=== PATIENT | male | born 1970 | race Caucasian/White ===

== ENCOUNTER 2016-12-31 13:43 | Day surgery (SDC) | payer OTHER ==
[2016-12-31] MEDS ORDERED: ASPIRIN EC 325 MG TAB PO ONE (14:01)
[2016-12-31] MEDS ORDERED: DIAZEPAM 5 MG TAB PO ONE (14:01)
[2016-12-31] MEDS ORDERED: NS 1,000 ML IV ONE (14:01)
[2016-12-31] MEDS ORDERED: FAMOTIDINE 20 MG TAB PO ONE (14:01)
[2016-12-31] MEDS ORDERED: diphenhydrAMINE 25 MG CAP PO ONE (14:01)
--- NOTE | 2016-12-31 14:18 | CPEKG ---
Heart Rate: 64 RR Interval: 938 P-R Interval: 160 QRSD Interval: 94 QT Interval: 396 QTC Interval: 409 P [place]: 33 QRS [place]: 51 T Wave [place]: 19 EKG Severity - NORMAL ECG - EKG Impression: SINUS RHYTHM Electronically Signed By: Nav Sanford 31-Dec-2016 19:27:18
--- NOTE | 2016-12-31 16:52 | GHP ---
[f rep st] HISTORY AND PHYSICAL DATE OF ADMISSION: 12/31/2016 CHIEF COMPLAINT: Chest pain. HISTORY OF PRESENT ILLNESS: The patient is a 46-year-old male with a history of CAD by coronary artery calcium scoring, dyslipidemia, who was brought over for evaluation of symptoms suggestive of unstable angina. He reports getting yearly calcium scores for the past 6 years. With this, he has noted advancement of the Agatston score, currently up to 254.76. In 2004, he injured his left shoulder due to a fall. Since that fall, he will experience arm numbness by pushing on a certain spot on his shoulder. He has also had muscular tightness in his upper back, with right greater than left-sided pains. A couple of weeks back, he was on his bike on a 70-mile ride, and he noted a discomfort radiating into his left chest that seemed worse than his typical musculoskeletal discomfort. He backed off on the intensity of the ride, and was able to get home. This discomfort was dissimilar from his typical episodes of musculoskeletal discomfort, which will occur at rest, and will typically be relieved by muscle relaxants. He denies any dyspnea out of proportion to his activity. He denies any diaphoresis or nausea. FAMILY HISTORY: Significant for uncles with coronary disease. He has a sister who is in good health. His mother and father have no known coronary disease. ALLERGIES: No known drug allergies. HOME MEDICATIONS: Include aspirin and statin therapy. Medications have yet to be reconciled. PAST MEDICAL HISTORY: Colonic polyps, coronary artery calcium, and dyslipidemia. SOCIAL HISTORY: Patient is , and his Stephanie is present at bedside. He denies any tobacco abuse. He rarely drinks alcohol. REVIEW OF SYSTEMS: As per HPI. A complete 10-point review of systems was obtained, and is negative except for what is dictated. PHYSICAL EXAM: VITAL SIGNS: BP of 100/60. Heart rate of 64. GENERAL: He is a pleasant male in no apparent distress. HEENT: Eyes are without scleral icterus. Mucous membranes moist. HEART: Regular rate and rhythm, with a 1/6 systolic murmur best heard at the apex. LUNGS: Clear to auscultation. ABDOMEN : Nontender, nondistended, with normoactive bowel sounds, and no hepatosplenomegaly. : Without Reynaga present. SKIN: Warm and dry. NEUROLOGIC: No focal deficits detected. PSYCHIATRIC: Normal mood and affect for given situation. LABORATORY DATA: A 12-lead ECG personally interpreted demonstrates normal sinus rhythm. IMPRESSION AND PLAN: The patient is a 46-year-old male who was sent over from Dr. Shepherd's office for concerns of unstable angina. 1. Chest pain. He has known elevated coronary artery calcium scoring, and has an episode of exertional chest pain dissimilar from his typical musculoskeletal discomfort. We have reviewed options, and he is agreeable to undergo left heart catheterization for further evaluation. Risks, benefits and alternatives were thoroughly reviewed with him today. 2. Dyslipidemia. This is followed by Dr. Shepherd. His LDL appears well controlled at 40. /[id number]/MODL MTDD
== END 2016-12-31 16:03 | disposition home or self-care (01) ==
LOC: FCATH 13:43
PROVIDERS: ATTEND Internal Medicine Cardiovascular Disease
DX: R07.9 Chest pain, unspecified (principal); E78.5 Hyperlipidemia, unspecified; Z53.09 Procedure and treatment not carried out because of other contraindication

== ENCOUNTER 2017-01-01 11:24 | Day surgery (SDC) | payer OTHER ==
[2017-01-01] MEDS ORDERED: NS 1,000 ML IV ONE (11:42)
[2017-01-01] MEDS ORDERED: DIAZEPAM 5 MG TAB PO ONE (11:42)
[2017-01-01] MEDS ORDERED: FAMOTIDINE 20 MG TAB PO ONE (11:42)
[2017-01-01] MEDS ORDERED: ASPIRIN EC 325 MG TAB PO ONE (11:42)
[2017-01-01] MEDS ORDERED: diphenhydrAMINE 25 MG CAP PO ONE (11:42)
[2017-01-01] MEDS ORDERED: ASPIRIN 325 MG TAB ONE (11:52)
[2017-01-01 11:55] LABS: % IMMATURE GRANULYOCYTES 0.2 % (0.0-1.1); ABSOLUTE IMMATURE GRANULOCYTES 0.01 10^3/uL (0.00-0.10); ADD DIFF? NO; ADD MORPH? NO; ADD SCAN? NO; ATYPICAL LYMPHOCYTE FLAG 30 (0-99); FRAGMENT RBC FLAG 0 (0-99); HEMATOCRIT 49.4 % (40.0-51.0); HEMOGLOBIN 17.5 g/dL (13.7-17.5); LEFT SHIFT FLG 0 (0-99); LIPEMIA HEMOLYSIS FLAG 90 (0-99); MEAN CELL HEMOGLOBIN 32.8 pg (27.9-34.1); MEAN CELL HEMOGLOBIN CONCENTR. 35.4 g/dL (32.4-36.7); MEAN CELL VOLUME 92.5 fL (81.5-99.8); MEAN PLATELET VOLUME 9.7 fL (8.7-11.7); PLATELET CLUMPS FLAG 10 (0-99); PLATELET COUNT 177 10^3/uL (150-400); RED BLOOD CELL COUNT 5.34 10^6/uL (4.40-6.38); RED CELL DISTRIBUTION WIDTH 12.3 % (11.5-15.2)
[2017-01-01 12:09] LABS: INR 1.08 (0.83-1.16); PROTIME(PATIENT) 13.9 SEC (12.0-15.0)
[2017-01-01 12:20] LABS: ANION GAP 12 mEq/L (8-16); CALCIUM 9.4 mg/dL (8.5-10.4); CARBON DIOXIDE 26 mEq/l (22-31); CHLORIDE 102 mEq/L (97-110); CHOLESTEROL 127 mg/dL (140-200); CHOLESTEROL/HDL RATIO 1.67 RATIO (1.00-4.97); CREATININE 0.8 mg/dL (0.7-1.3); GLOMERULAR FILTRATION RATE > 60; GLUCOSE 83 mg/dL (70-100); HIGH DENSITY LIPOPROTEIN 76 mg/dL (40-65); LDL/HDL RATIO 0.49 RATIO (1.00-3.64); LOW DENSITY LIPOPROTEIN 37 mg/dL (70-100); MAGNESIUM 1.9 mg/dL (1.6-2.3); NON-HIGH DENSITY LIPOPROTEIN 51 mg/dL (90-129); POTASSIUM 3.7 mEq/L (3.5-5.2); SODIUM 140 mEq/L (134-144); TRIGLYCERIDE 72 mg/dL (40-150); VERY LOW DENSITY LIPOPROTEINS 14 mg/dL (8-25)
[2017-01-01] MEDS ORDERED: LIDOCAINE 1% 30 ML SDV ONE (12:55)
[2017-01-01] MEDS ORDERED: fentaNYL 100 MCG/2 ML INJ ONE ×2 (12:55→14:50)
[2017-01-01] MEDS ORDERED: IOPAMIDOL (ISOVUE-370) 150 ML BTL IV ONE (12:56)
[2017-01-01] MEDS ORDERED: VERAPAMIL 5 MG/2 ML VIAL ONE (12:56)
[2017-01-01] MEDS ORDERED: HEPARIN 10,000 UNIT/10 ML MDV ONE (12:56)
[2017-01-01] MEDS ORDERED: MIDAZOLAM 2 MG/2 ML VIAL ONE ×2 (12:56→13:54)
[2017-01-01] MEDS ORDERED: NITROGLYCERIN 0.4 MG BTL SL ONE (16:40)
[2017-01-01] MEDS ORDERED: NITROGLYCERIN 0.4 MG BTL SL PRN (16:44)
[2017-01-01] MEDS ORDERED: ONDANSETRON 4 MG/2 ML VIAL IVP PRN (16:44)
[2017-01-01] MEDS ORDERED: OXYCODONE/APAP 5/325 TAB PO PRN (16:44)
[2017-01-01] MEDS ORDERED: HYDROCODONE/APAP 5/325 TAB PO PRN (16:44)
[2017-01-01] MEDS ORDERED: ATROPINE SULFATE 1 MG/10 ML SYR IVP PRN (16:44)
--- NOTE | 2017-01-01 20:06 | CPIP ---
[f rep st] INVASIVE CARDIAC PROCEDURE DATE OF PROCEDURE: 01/01/2017 PROCEDURE: 1. Left heart catheterization. 2. Coronary angiography, left. INDICATIONS: Increasing chest discomfort, including new onset exertional chest discomfort, in a pat ient with known coronary disease. COMPLICATIONS: None apparent. DESCRIPTION OF PROCEDURE: N.p.o. status was confirmed, informed consent obtained, and timeout perfo rmed. The patient was brought to the catheterization laboratory and prepped and draped in a sterile fashion. Conscious sedation was achieved with Versed and fentanyl IV. 1% lidocaine was used for l ocal anesthesia of the right wrist. Using modified Seldinger technique, a 5-Tamazight introducer sheat h was placed in the right radial artery. Charles right catheter was used for right coronary angiog radha. JL 3.5 catheter was used for left ventriculography. We were unable to cross the aortic valv e with the pigtail catheter, and therefore a ventriculogram was not obtained, but we were able to cr oss the valve with the right coronary catheter and therefore we do have LV pressures. FINDINGS: 1. The left main was normal and bifurcates into the LAD and left circumflex system. 2. The LAD reaches the apex. There is 1 large branching diagonal. There was 40% proximal LAD sten osis with MARLEN-3 flow throughout the vessel. 3. The circumflex artery has 1 large branching obtuse marginal vessel. There was no significant di sease in the circumflex or the obtuse marginal. 4. The right coronary artery was large and dominant. There was no significant coronary artery dise ase. HEMODYNAMICS: LV pressure is 105/5 with an end-diastolic pressure of 15. Aortic pressure is 104/76 . There is no aortic stenosis. CONCLUSIONS: 1. Non flow-limiting proximal left anterior descending artery disease in this right dominant system . 2. Normal left heart pressures. 3. The patient's right radial arteriotomy site was sealed with a TR band. He was taken to the [facility] in stable condition. Results discussed with the patient and his . He will be discharged home l atejordyn today. 4. Follow up with me in 1 week, and continue to follow up with Dr. Shepherd. /[id number]/MODL
== END 2017-01-01 19:22 | disposition home or self-care (01) ==
LOC: FCATH 11:24
PROVIDERS: ATTEND Internal Medicine Cardiovascular Disease
PROC: 4A023N7 Measurement of Cardiac Sampling and Pressure, Left Heart, Percutaneous Approach (ICD-10-PCS; principal; 2017-01-01)
PROC: B2111ZZ Fluoroscopy of Multiple Coronary Arteries using Low Osmolar Contrast (ICD-10-PCS; principal; 2017-01-01)
DX: R07.9 Chest pain, unspecified (principal); I25.10 Atherosclerotic heart disease of native coronary artery without angina pectoris
CPT/HCPCS: 93458; C1769; J1644; J2250; J3010; Q9967

== ENCOUNTER 2017-01-01 21:11 | Emergency (ER) | payer OTHER ==
[2017-01-01 21:16] VITALS: PULSE 65; TEMP 98.6
--- NOTE | 2017-01-01 21:45 | EDPHY ---
H & P Stated Complaint: BLEEDING FROM CATH SITE,STOPPED NOW Time Seen by Provider: 01/01/17 21:38 HPI/ROS: CHIEF COMPLAINT: Right wrist bleeding HISTORY OF PRESENT ILLNESS: The patient is a 46-year-old man who comes to the emergency department complaining of bleeding from his right wrist. He had a angio cath done earlier today and was released about 3 hours ago. He tried to change his dressing tonight and it began bleeding again. He was dressed with Coban at triage and bleeding has now stopped. He has no swelling or hematoma. Pulses are good. Normal hand motion. No tingling. REVIEW OF SYSTEMS: Constitutional: denies: chills, fever, recent illness, recent injury EENTM: denies: blurred vision, double vision, nose congestion Respiratory: denies: cough, shortness of breath Cardiac: denies: chest pain, irregular heart rate, lightheadedness, palpitations Gastrointestinal/Abdominal: denies: abdominal pain, diarrhea, nausea, vomiting, blood streaked stools Genitourinary: denies: dysuria, frequency, hematuria, pain Musculoskeletal: denies: joint pain, muscle pain Skin: See HPI Neurological: denies: headache, numbness, paresthesia, tingling, dizziness, weakness Hematologic/Lymphatic: denies: blood clots, easy bleeding, easy bruising Immunologic/allergic: denies: HIV/AIDS, transplant EXAM: GENERAL: Well-appearing, well-nourished and in no acute distress. HEAD: Atraumatic, normocephalic. EYES: Pupils equal round and reactive to light, extraocular movements intact, sclera anicteric, conjunctiva are normal. ENT: TMs normal, nares patent, oropharynx clear without exudates. Moist mucous membranes. NECK: Normal range of motion, supple without lymphadenopathy or JVD. LUNGS: Breath sounds clear to auscultation bilaterally and equal. No wheezes rales or rhonchi. HEART: Regular rate and rhythm without murmurs, rubs or gallops. ABDOMEN: Soft, nontender, normoactive bowel sounds. No guarding, no rebound. No masses appreciated. BACK: No CVA tenderness, no spinal tenderness, step-offs or deformities EXTREMITIES: Small puncture right radial artery, bleeding controlled. No hematoma or swelling or pseudoaneurysm. Pulses intact. Normal range of motion and sensation. no pitting or edema. No clubbing or cyanosis. NEUROLOGICAL: Cranial nerves II through XII grossly intact. Normal speech, normal gait. 5/5 strength, normal movement in all extremities, normal sensation PSYCH: Normal mood, normal affect. SKIN: Warm, dry, normal turgor, no visible rashes or lesions. Source: Patient Exam Limitations: No limitations - Personal History Current Tetanus/Diphtheria Vaccine: Yes Current Tetanus Diphtheria and Acellular Pertussis (TDAP): Yes - Medical/Surgical History Hx Asthma: No Hx Chronic Respiratory Disease: No Hx Diabetes: No Hx Cardiac Disease: Yes Hx Renal Disease: No Hx Cirrhosis: No Hx Alcoholism: No Hx HIV/AIDS: No Hx Splenectomy or Spleen Trauma: No Other PMH: CATH NO STENTS - Family History Significant Family History: No pertinent family hx - Social History Smoking Status: Former smoker Alcohol Use: Sober Drug Use: None Constitutional: Initial Vital Signs Temperature (C) 37 C 01/01/17 21:13 Heart Rate 65 01/01/17 21:13 Respiratory Rate 18 01/01/17 21:13 Blood Pressure 132/88 H 01/01/17 21:13 O2 Sat (%) 97 01/01/17 21:13 O2 Delivery Mode Room Air Allergies/Adverse Reactions: No Known Allergies Allergy (Unverified 01/01/17 21:16) Home Medications: Medication Instructions Recorded Aspirin 81 mg PO HS 01/01/17 Atorvastatin Calcium 40 mg PO HS 01/01/17 Lisinopril 2.5 mg PO DAILY 01/01/17 Niacin 500 mg PO HS 01/01/17 [place]-3 900 mg PO BID 01/01/17 Vitamin D3 4,000 iunits PO DAILY 01/01/17 Vitamin K2 PO HS 01/01/17 Zetia 10 mg PO DAILY 01/01/17 Medical Decision Making ED Course/Re-evaluation: patient's bleeding is now controlled. Will wrapped with Coban. Dr. Donald is on his way also to see the patient. 10:00 p.m. the patient was seen by Dr. Donald in his given the green like to go home. Differential Diagnosis: Partial list of the Differential diagnosis considered include but were not limited to; bleeding, pseudoaneurysm, hematoma and although unlikely based on the history and physical exam, I also considered infection, foreign body. I discussed these differential diagnoses and the plan with the patient as well as the usual and expected course. The patient understands that the diagnosis is provisional and that in medicine we are not always correct and that further workup is often warranted. Usual and customary warnings were given. All of the patient's questions were answered. The patient was instructed to return to the emergency department should the symptoms at all worsen or return, otherwise to followup with the physician as we discussed. Departure - Departure Disposition: Home, Routine, Self-Care Clinical Impression: Postoperative bleeding from incision Condition: Fair Instructions: Postoperative Bleeding (ED) Referrals: Jeanne Shepherd MD [Primary Care Provider] - As per Instructions
[2017-01-01 22:17] VITALS: BP 123/77; RESP 14; O2SAT 99
== END 2017-01-01 22:16 | disposition home or self-care (01) ==
DX: T82.838A Hemorrhage due to vascular prosthetic devices, implants and grafts, initial encounter (principal); Z79.82 Long term (current) use of aspirin; Z87.891 Personal history of nicotine dependence; Y71.2 Prosthetic and other implants, materials and accessory cardiovascular devices associated with adverse incidents

== ENCOUNTER 2018-05-20 07:34 | Day surgery (SDC) | payer OTHER ==
[2018-05-20] MEDS ORDERED: MIDAZOLAM 2 MG/2 ML VIAL IVP ONE (07:39)
[2018-05-20] MEDS ORDERED: NS 500 ML IV ONE (07:39)
[2018-05-20] MEDS ORDERED: fentaNYL 100 MCG/2 ML INJ IVP ONE (07:39)
[2018-05-20] MEDS ORDERED: BENZOCAINE UNIT DOSE SPRAY HURRICAINE MM ONE (07:39)
--- NOTE | 2018-05-20 09:12 | PDGENHP ---
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 Needs SONA to clarify Pertinent Past, Social, Family History: reviewed Relevant Physical Exam: RRR no m/r/g. lungs CTAB Cardiorespiratory Assessment: stable for sedation. Further assessment per anesthesia
--- NOTE | 2018-05-20 09:26 | PDANEPAE ---
ANE History of Present Illness SONA to eval for bicuspid AV ANE Past Medical History - Cardiovascular History Hx Coronary Artery / Peripheral Vascular Disease: Yes - Pulmonary History Hx Oxygen in Use at Home: No Hx Sleep Apnea: No - Endocrine History Hx Diabetes: No ANE Review of Systems Review of Systems: - Exercise capacity Exercise capacity: >=4 METS ANE Patient History - Allergies Allergies/Adverse Reactions: No Known Allergies Allergy (Unverified 01/01/17 21:16) - Home Medications Home medications: home medication list seen and reviewed Home Medications: Aspirin 81 mg PO HS 01/01/17 [Last Taken 05/20/18 07:00] Niacin 1,000 mg PO DAILY 01/01/17 [Last Taken 05/20/18 07:00] [place]-3 1 mg PO DAILY 01/01/17 [Last Taken 05/20/18 07:00] Vitamin D3 4,000 iunits PO DAILY 01/01/17 [Last Taken 05/20/18 07:00] Colestipol HCl 1 PO DAILY 05/20/18 [Last Taken 05/19/18 14:00] Coq10 100 mg PO DAILY 05/20/18 [Last Taken 05/19/18 21:00] Cozaar 25 mg (*) 25 mg PO DAILY 05/20/18 [Last Taken 05/20/18 07:00] Herbals/Supplements -Info Only 05/20/18 [Last Taken 05/19/18 07:00] Rosuvastatin Calcium 10 mg PO DAILY 05/20/18 [Last Taken 05/20/18 07:00] Zantac 300 mg PO HS 05/20/18 [Last Taken 05/19/18 21:00] - NPO status NPO Status: no food or drink >8 hours - Anes Hx Anes Hx: no prior problems Hx Anesthesia Complications (with details): nausea with labor supervisor sedation - Smoking Hx Smoking Status: Former smoker - Alcohol Use Alcohol Use: None - Family Anes Hx Family Anes Hx: none ANE Labs/Vital Signs - Vital Signs Height: 177.8 cm Weight: 84.7 kg ANE Physical Exam - Airway Neck exam: FROM Mallampati Score: Class 1 Mouth exam: normal dental/mouth exam - Pulmonary Pulmonary: no respiratory distress - Cardiovascular Cardiovascular: regular rate and rhythym - ASA Status ASA Status: II ANE Anesthesia Plan Anesthesia Plan: GA with mask Total IV Anesthesia: Yes
[2018-05-20] MEDS ORDERED: LIDOCAINE 2% 100 MG/5 ML SYR ONE (09:27)
[2018-05-20] MEDS ORDERED: PROPOFOL 200 MG/20 ML VIAL ONE (09:27)
[2018-05-20] MEDS ORDERED: fentaNYL 100 MCG/2 ML INJ IVP PRN (10:05)
[2018-05-20] MEDS ORDERED: NALOXONE HCL 0.4 MG/ML INJ IVP PRN (10:05)
[2018-05-20] MEDS ORDERED: ONDANSETRON 4 MG/2 ML VIAL IVP PRN (10:05)
[2018-05-20] MEDS ORDERED: LR 500 ML IV PRN (10:05)
[2018-05-20] MEDS ORDERED: PHENYLEPHRINE HCL 100 MCG/ML SYR IVP PRN (10:05)
[2018-05-20] MEDS ORDERED: ACETAMINOPHEN 500 MG TAB PO PRN (10:05)
[2018-05-20] MEDS ORDERED: ALBUTEROL 3 ML DEYVIAL IH PRN (10:05)
--- NOTE | 2018-05-20 10:05 | POSTANESTH ---
Post Anesthetic Evaluation Cardiovascular Status: Normal, Stable Respiratory Status: Normal, Stable Level of Consciousness/Mental Status: Can Participate in Eval Pain Control: Adequate, Prn Tx Ordered Nausea/Vomiting Control: Adequate, Prn Tx Ordered Complications Possibly Related to Anesthesia: None Noted
--- NOTE | 2018-05-20 17:12 | ECHO ---
[email or web address] [address] [address] Main: [phone] Fax: Transesophageal Echocardiography Name: TROY RODRIGUEZ MR#: [id number] Study Date: 05/20/2018 Study Time: 09:05 AM Date of : 1970 Age: 47 year(s) Height: ( ) Weight: ( ) BSA: Gender: Male Examination: SONA Indication: Eval Aortic Valve Image Quality: Contrast: Requested by: Em Villanueva Heart Rate: Rhythm: Normal sinus rhythm BP: / Procedure Staff Assistant Activities Director: Az Perez RDCS Reading Physician: Em Villanueva MD Requesting Provider: SONA Exam Details Conclusions: Normal global systolic LV function. Normal RV function. An agitated saline study was performed and was negative for intracardiac shunting. No thrombus in left appendage. There is a partially fused/raphe of the left and right coronary cusp. The aortic valve is functionally bicuspid. There is mild Aortic insufficiency.. The aorta is normal. No pericardial effusion. Measurements: Chambers Valvular Assessment AV/MV Valvular Assessment TV/PV Normal Normal Normal Name Value Range Name Value Range Name Value Range Additional Measurements: Findings: Left Ventricle: Normal global systolic LV function. Right Ventricle: Normal RV function. Left Atrium: An agitated saline study was performed and was negative for intracardiac shunting. Patient: TROY RODRIGUEZ Study Date: 05/20/2018 Page 1 of 2 09:05 AM Left Atrial Appendage: Good color flow doppler in the left atrial appendage. No thrombus in left appendage. Right Atrium: The right atrium is normal in size. Mitral Valve: The mitral valve is normal in appearance. Trivial mitral valve regurgitation. Aortic Valve: There is a partially fused/raphe of the left and right coronary cusp. The aortic valve is functionally bicuspid. There is mild Aortic insufficiency.. Tricuspid Valve: The tricuspid valve is normal in appearance and function. Pulmonic Valve: The pulmonic valve is normal in appearance and function. Aorta: The aorta is normal. Pericardium: No pericardial effusion. l1n (No Signature Object) Patient: TROY RODRIGUEZ Study Date: 05/20/2018 Page 2 of 2 09:05 AM [id number]
== END 2018-05-20 11:29 | disposition home or self-care (01) ==
LOC: FCATH 07:34
PROVIDERS: ATTEND Internal Medicine Cardiovascular Disease
PROC: B246ZZ4 Ultrasonography of Right and Left Heart, Transesophageal (ICD-10-PCS; principal; 2018-05-20)
DX: Q23.1 Congenital insufficiency of aortic valve (principal); I25.10 Atherosclerotic heart disease of native coronary artery without angina pectoris
CPT/HCPCS: J2001; J2704

== ENCOUNTER 2018-05-25 11:18 | Emergency (ER) | payer OTHER ==
[2018-05-25 11:52] LABS: PLATELET COUNT 172 10^3/uL (150-400)
--- NOTE | 2018-05-25 11:58 | EDPHY ---
H & P Time Seen by Provider: 05/25/18 13:15 HPI/ROS: Chief complaint. Chest pain HPI. 39-year-old male with known coronary artery disease presents with chest pain for the last 24 hr. It has been continuous. It is described as left anterior and sharp and stabbing. Similar to previous symptoms however previously usually only last 1-2 days. It is not worse with breathing, exertion or twisting. He did have increased caffeine yesterday which is a known trigger for him for chest discomfort. This morning he checked his blood pressure and it was high at 140 9/94. He has had recent travel. Does not have unusual leg pain or swelling however. He did take an aspirin prior to arrival. Patient had a SONA on 05/20 that showed bicuspid aorta but no aneurysm. He has had a previous coronary artery angiogram showing 30-40% lesion in the LAD. No stents placed ROS 10 systems were reviewed and negative with the exception of the elements mentioned in the history of present illness Past Medical/Surgical History: Coronary artery disease without stents Social History: , nonsmoker, no alcohol Smoking Status: Former smoker Physical Exam: General Appearance: Alert pleasant well-developed male mild distress vital signs significant for blood pressure 146/1 to Eyes: Pupils equal and round no pallor or injection. ENT, Mouth: Mucous membranes are moist. Respiratory: There are no retractions, lungs are clear to auscultation. Cardiovascular: Regular rate and rhythm. Gastrointestinal: Abdomen is soft and nontender, no masses, bowel sounds normal. Neurological: Awake and alert, sensory and motor exams grossly normal. Skin: Warm and dry, no rashes. Musculoskeletal: Neck is supple nontender. Extremities symmetrical, full range of motion. Psychiatric: Patient is oriented X 3, there is no agitation. Constitutional: Initial Vital Signs Temperature (C) 36.4 C 05/25/18 11:20 Heart Rate 75 05/25/18 11:20 Respiratory Rate 18 05/25/18 11:20 Blood Pressure 146/102 H 05/25/18 11:20 O2 Sat (%) 96 05/25/18 11:20 O2 Delivery Mode Room Air Allergies/Adverse Reactions: No Known Allergies Allergy (Verified 05/25/18 11:19) Home Medications: Medication Instructions Recorded Aspirin 81 mg PO HS 01/01/17 Niacin 1,000 mg PO DAILY 05/09/17 [place]-3 1 mg PO DAILY 01/01/17 Vitamin D3 4,000 iunits PO DAILY 01/01/17 Colestipol HCl 1 PO DAILY 05/20/18 Coq10 100 mg PO DAILY 05/20/18 Cozaar 25 mg (*) 25 mg PO DAILY 05/20/18 Herbals/Supplements -Info Only 05/20/18 Rosuvastatin Calcium 10 mg PO DAILY 05/20/18 Zantac 300 mg PO HS 05/20/18 Medical Decision Making - Diagnostics EKG Interpretation: EKG interpreted by me shows normal sinus rhythm with normal interval and axis. QRS is normal there is no significant ST elevation or depression. There is no arrhythmia. The rate is 81 Imaging Results: Imaging Impressions Chest X-Ray 05/25/18 11:59 Impression: Negative portable chest. Procedures: IV normal saline, monitor ED Course/Re-evaluation: Repeat troponin is negative Spencer re-evaluation at 1:00 p.m.. Patient is stable. The patient is and I discussed treatment plan including criteria for return importance of follow-up and further evaluation. They expressed understanding and agreement I discussed the case with Dr. Shepherd, patient's regular physician; she agrees with treatment plan Differential Diagnosis: I considered acute coronary syndrome, pulmonary embolus because of recent travel. Patient has had 25 hr of continuous chest discomfort with normal workup. I also considered pneumothorax after the patient having a recent SONA 2 days ago - Data Points Laboratory Results: Laboratory Results 05/25/18 11:25 05/25/18 11:25 05/25/18 05/25/18 05/25/18 12:48 11:30 11:25 WBC RBC Hgb Hct MCV MCH MCHC RDW Plt Count MPV Neut % (Auto) Lymph % (Auto) [place] % (Auto) Eos % (Auto) Baso % (Auto) Nucleat RBC Rel Count Absolute Neuts (auto) Absolute Lymphs (auto) Absolute Monos (auto) Absolute Eos (auto) Absolute Basos (auto) Absolute Nucleated RBC Immature Gran % Immature Gran # D-Dimer 0.29 ug/mLFEU ug/mLFEU (0.00-0.50) Sodium Potassium Chloride Carbon Dioxide Anion Gap BUN Creatinine Estimated GFR Glucose Calcium POC Troponin I 0.00 ng/mL ng/mL 0.01 ng/mL ng/mL (0.00-0.08) (0.00-0.08) 05/25/18 05/25/18 11:25 11:25 WBC 5.89 10^3/uL 10^3/uL (3.80-9.50) RBC 4.89 10^6/uL 10^6/uL (4.40-6.38) Hgb 16.4 g/dL g/dL (13.7-17.5) Hct 45.4 % % (40.0-51.0) MCV 92.8 fL fL (81.5-99.8) MCH 33.5 pg pg (27.9-34.1) MCHC 36.1 g/dL g/dL (32.4-36.7) RDW 11.9 % % (11.5-15.2) Plt Count 172 10^3/uL 10^3/uL (150-400) MPV 9.9 fL fL (8.7-11.7) Neut % (Auto) 42.9 % % (39.3-74.2) Lymph % (Auto) 42.3 % % (15.0-45.0) Crowley % (Auto) 10.4 % % (4.5-13.0) Eos % (Auto) 3.9 % % (0.6-7.6) Baso % (Auto) 0.2 % L % (0.3-1.7) Nucleat RBC Rel Count 0.0 % % (0.0-0.2) Absolute Neuts (auto) 2.53 10^3/uL 10^3/uL (1.70-6.50) Absolute Lymphs (auto) 2.49 10^3/uL 10^3/uL (1.00-3.00) Absolute Monos (auto) 0.61 10^3/uL 10^3/uL (0.30-0.80) Absolute Eos (auto) 0.23 10^3/uL 10^3/uL (0.03-0.40) Absolute Basos (auto) 0.01 10^3/uL L 10^3/uL (0.02-0.10) Absolute Nucleated RBC 0.00 10^3/uL 10^3/uL (0-0.01) Immature Gran % 0.3 % % (0.0-1.1) Immature Gran # 0.02 10^3/uL 10^3/uL (0.00-0.10) D-Dimer Sodium 140 mEq/L mEq/L (135-145) Potassium 4.0 mEq/L mEq/L (3.3-5.0) Chloride 103 mEq/L mEq/L (97-110) Carbon Dioxide 28 mEq/l mEq/l (22-31) Anion Gap 9 mEq/L mEq/L (8-16) BUN 14 mg/dL mg/dL (7-23) Creatinine 0.8 mg/dL mg/dL (0.7-1.3) Estimated GFR > 60 Glucose 108 mg/dL H mg/dL (70-100) Calcium 9.6 mg/dL mg/dL (8.5-10.4) POC Troponin I Point of Care Test Results: Chemistry 05/25/18 05/25/18 12:48 11:30 POC Troponin I 0.00 ng/mL ng/mL 0.01 ng/mL ng/mL (0.00-0.08) (0.00-0.08) Departure - Departure Disposition: Home, Routine, Self-Care Clinical Impression: Chest pain Qualifiers: Chest pain type: unspecified Qualified Code(s): R07.9 - Chest pain, unspecified Condition: Good Instructions: Chest Pain (ED) Additional Instructions: Activity As tolerated. Return for worsening symptoms. Recheck with Dr. Shepherd in 1-2 days for continuing symptoms Referrals: Jeanne Shepherd MD [Primary Care Provider] - 2-3 days, if not improved
[2018-05-25 13:37] VITALS: BP 128/98
--- NOTE | 2018-05-25 15:35 | CPEKG ---
Test Reason : OPEN Blood Pressure : / mmHG Vent. Rate : 081 BPM Atrial Rate : 082 BPM P-R Int : 153 ms QRS Dur : 105 ms QT Int : 358 ms P-R-T Axes : 056 058 031 degrees QTc Int : 416 ms Sinus rhythm Confirmed by Uriel Schumacher ([id number]) on 05/25/2018 3:35:29 PM Referred By: Confirmed By:Uriel Schumacher
== END 2018-05-25 13:36 | disposition home or self-care (01) ==
DX: R07.9 Chest pain, unspecified (principal); I25.10 Atherosclerotic heart disease of native coronary artery without angina pectoris; Z87.891 Personal history of nicotine dependence
CPT/HCPCS: 84484-PO

== ENCOUNTER → 2018-08-14 | Outpatient (CLI) | payer OTHER ==
[~2018-08-14] MED LIST: GADOBUTROL 10 ML VIAL IVP ONE
== END ==
LOC: FIMAGING 12:19
PROVIDERS: ATTEND Physical Medicine & Rehabilitation
DX: S43.432A Superior glenoid labrum lesion of left shoulder, initial encounter (principal); M75.32 Calcific tendinitis of left shoulder
CPT/HCPCS: A9585

== ENCOUNTER → 2018-12-27 | Outpatient (CLI) | payer OTHER | LOC: FIMAGING 10:49 | PROVIDERS: ATTEND Internal Medicine | DX: M54.5 Low back pain (principal); M48.061 Spinal stenosis, lumbar region without neurogenic claudication ==